=== PATIENT | female | born 1970 | race Caucasian/White ===

== ENCOUNTER 2017-01-26 16:15 | Outpatient (RCR) | payer OTHER ==
[~2017-01-26 16:15] MED LIST: ACIPHEX20 MG PO; ADIPEX-P37.5 M1 PO; ASPIRIN 81M81 MG/TA2 PO; CELEXA 20MG20 MG/TAB PO; CELEXA10 MG PO; DUO-KAPS1 CAP PO; FISH OIL SUPER1 SGL PO; FLEXERIL 1010 MG/TAB PO; GLUCOSAMINE & C1 CA1 PO; IMITREX100 MG PO; KLONOPIN 0.5MG0.5 MG PO; LINZESS145CAP PO; MIRAPEX 0.0.125 MG/T PO; MOTRIN 800800 MG/TAB PO; MVI; NEURONTIN300 MG/CAP PO; NORCO 325 MG-101 TAB PO; NORCO 325 MG-51 TAB PO; NORCO 325 MG-7.1 TAB PO; PERCOCET 5/321 UDTAB PO; PHENERGAN 25 TA25 MG PO; PHENERGAN25 MG RC; PREVACID 30MG30 M1 PO; PROBIOTICA100 MILLIO; PROTONIX 40MG T40 MG PO; ROBAXIN 50500 MG/TAB; ROBAXIN 50500 MG/TAB PO; SENOKOT8.6 MG PO; SKELAXIN 4400 MG/TAB PO; ULTRAM 50MG TAB50 MG PO; VALIUM5 MG PO; VITAMIN B121000 MC2 SL; VITAMIN B122500 MCG SL; VITAMIN D31000 I1 PO; XANAX .25M0.25 MG/TA PO; [UNRECOGNIZED DRUG - REMARK]
== END 2017-01-29 08:40 | disposition home or self-care (01) ==
LOC: MKS.ESL.PT 16:15
DX: Z47.89 Encounter for other orthopedic aftercare (principal); Z98.1 Arthrodesis status

== ENCOUNTER → 2017-06-06 | Outpatient (CLI) | payer OTHER ==
[~2017-06-06] MED LIST changes: +NEXIUM 20MG20 MG PO; +TORADOL 10MG TA10 MG PO; +ZANAFLEX2 MG PO
== END ==
LOC: COL.RAD 07:21
DX: I70.0 Atherosclerosis of aorta (principal); F17.200 Nicotine dependence, unspecified, uncomplicated

== ENCOUNTER 2017-06-10 10:12 | Emergency (ER) | payer OTHER ==
[~2017-06-10] VITALS: Ht 167.6 cm; Wt 96.4 kg
[~2017-06-10 10:12] MED LIST changes: -NEXIUM 20MG20 MG PO; -TORADOL 10MG TA10 MG PO; -ZANAFLEX2 MG PO
[2017-06-10 10:14] VITALS: BP 138/86; TEMP 98.5
[2017-06-10 10:45] LABS: BASO # 0.1 (0.0-0.2); BASO % 0.6 % (0.0-2.0); EOS # 0.3 (0.0-0.7); EOS % 2.2 % (0-4.0); GRAN # 7.7 (1.4-6.5); GRAN % 61.4 % (42.2-75.2); HEMATOCRIT 43.4 % (37.0-47.0); HEMOGLOBIN 14.4 g/dl (12.5-16.0); LYMPH # 3.5 (1.2-3.4); MEAN CELL VOLUME 96 fl (80.0-100.0); MEAN CORPUSCULAR HEMOGLOBIN 32 pg (27.0-31.0); MEAN CORPUSCULAR HGB CONC 33 g/dl (33.0-37.0); MEAN PLATELET VOLUME 9.4 fl (7.4-10.4); MONO # 0.9 (0.1-0.6); MONO % 7.5 % (1.7-9.3); PLATELET COUNT 507 K/mm3 (130-400); RED BLOOD COUNT 4.54 M/mm3 (4.10-5.30); REDCELL DISTRIBUTION WIDTH-CV 13.8 % (11.5-14.5); WHITE BLOOD COUNT 12.6 K/mm3 (4.8-10.8)
[2017-06-10 10:47] LABS: PH 6 (5-8); SQUAMOUS EPITHELIAL 0-2 /hpf; URINE APPEARANCE Clear; URINE BACTERIA None Seen /hpf; URINE BILIRUBIN Negative (NEGATIVE); URINE BLOOD 1+ (NEGATIVE); URINE COLOR Yellow; URINE GLUCOSE Negative (NEGATIVE); URINE KETONE Negative (NEGATIVE); URINE UROBILINOGEN Negative (NEGATIVE); URINE WBC 0-2 /hpf
[2017-06-10] MEDS ORDERED: NEXIUM 20MG20 MG PO (10:48)
[2017-06-10] MEDS ORDERED: TORADOL 10MG TA10 MG PO (10:50)
[2017-06-10] MEDS ORDERED: ZANAFLEX2 MG PO (10:50)
[2017-06-10 11:00] LABS: ADJUSTED CALCIUM 9.3 mg/dL (8.4-10.2); ALBUMIN 4.7 gm/dL (3.5-5.0); BILIRUBIN,TOTAL 0.5 mg/dL (0.0-1.0); C-REACTIVE PROTEIN 0.6 mg/dL (0.0-0.9); CALCIUM 9.9 mg/dL (8.4-10.2); CREATININE, serum 0.64 mg/dL (0.52-1.25); POTASSIUM 4.5 mmol/L (3.4-5.0)
[2017-06-10] MEDS ORDERED: NORCO 325 MG-51 TAB PO (12:36)
[2017-06-10 12:59] VITALS: PULSE 79
== END 2017-06-10 13:00 | disposition home or self-care (01) ==
LOC: COL.ER 10:12
PROVIDERS: Family Medicine
DX: N20.0 Calculus of kidney (principal)
CPT/HCPCS: J2270; J2405; J7030; Q9967

== ENCOUNTER → 2017-06-12 | Outpatient (CLI) | payer OTHER ==
[~2017-06-12] MED LIST changes: +NEXIUM 20MG20 MG PO; +TORADOL 10MG TA10 MG PO; +ZANAFLEX2 MG PO
== END ==
LOC: COL.RAD 08:09
DX: M47.816 Spondylosis without myelopathy or radiculopathy, lumbar region (principal); M54.5 Low back pain; Z98.890 Other specified postprocedural states
CPT/HCPCS: A9585

== ENCOUNTER 2017-07-22 14:11 | Emergency (ER) | payer OTHER ==
[~2017-07-22] VITALS: Ht 167.6 cm; Wt 95.5 kg
[2017-07-22 14:20] VITALS: TEMP 97.5
[2017-07-22 15:58] VITALS: BP 122/72; PULSE 82
== END 2017-07-22 16:03 | disposition home or self-care (01) ==
LOC: COL.ER 14:11
DX: G43.909 Migraine, unspecified, not intractable, without status migrainosus (principal); F17.210 Nicotine dependence, cigarettes, uncomplicated; Z87.442 Personal history of urinary calculi; Z90.710 Acquired absence of both cervix and uterus
CPT/HCPCS: J1200; J1885; J2765; J7030

== ENCOUNTER 2017-10-25 02:22 | Observation (INO) | payer OTHER ==
[~2017-10-25] VITALS: Ht 167.6 cm; Wt 98.7 kg
[2017-10-25 03:13] LABS: BASO # 0.1 (0.0-0.2); BASO % 0.5 % (0.0-2.0); EOS # 0.3 (0.0-0.7); EOS % 2.3 % (0-4.0); GRAN # 7.3 (1.4-6.5); GRAN % 55.5 % (42.2-75.2); HEMATOCRIT 37.2 % (37.0-47.0); HEMOGLOBIN 12.5 g/dl (12.5-16.0); LYMPH # 4.4 (1.2-3.4); LYMPH % 33.6 % (20.0-51.0); MEAN CELL VOLUME 98 fl (80.0-100.0); MEAN CORPUSCULAR HEMOGLOBIN 33 pg (27.0-31.0); MEAN CORPUSCULAR HGB CONC 34 g/dl (33.0-37.0); MEAN PLATELET VOLUME 9.4 fl (7.4-10.4); MONO % 7.6 % (1.7-9.3); PLATELET COUNT 436 K/mm3 (130-400); RED BLOOD COUNT 3.78 M/mm3 (4.10-5.30)
[2017-10-25 03:24] LABS: ALBUMIN 4.3 gm/dL (3.5-5.0); BILIRUBIN,TOTAL 0.4 mg/dL (0.0-1.0); CALCIUM 9.6 mg/dL (8.4-10.2); CREATININE, serum 0.74 mg/dL (0.52-1.25); POTASSIUM 4.5 mmol/L (3.4-5.0)
[2017-10-25 03:34] LABS: COLLECTION METHOD CLEAN CATCH
[2017-10-25] MEDS ORDERED: MIRAPEX0.25 MG PO (03:35)
[2017-10-25] MEDS ORDERED: ROBAXIN 75750 MG/TAB PO ×2 (03:37)
[2017-10-25] MEDS ORDERED: ROBAXIN 50500 MG/TAB PO (03:37)
[2017-10-25] MEDS ORDERED: PHARMASSURE MA500 MG PO (03:38)
[2017-10-25] MEDS ORDERED: WELLBUTRIN 75MG75 MG PO (03:38)
[2017-10-25] MEDS ORDERED: NORCO 325 MG-7.1 TAB PO (03:39)
[2017-10-25 03:41] LABS: MUCOUS Present /lpf; PH 5 (5-8); SQUAMOUS EPITHELIAL 0-2 /hpf; URINE APPEARANCE Clear; URINE BACTERIA None Seen /hpf; URINE BILIRUBIN Negative (NEGATIVE); URINE BLOOD 2+ (NEGATIVE); URINE COLOR Yellow; URINE GLUCOSE Negative (NEGATIVE); URINE KETONE Negative (NEGATIVE); URINE LEUKOCYTE ESTERASE Negative (NEGATIVE); URINE NITRATE Negative (NEGATIVE); URINE PROTEIN(semi-quant) Negative (NEGATIVE); URINE RBC >50 /hpf; URINE UROBILINOGEN Negative (NEGATIVE)
[2017-10-25] MEDS ORDERED: ASPIRIN 81M81 MG/TA2 PO (05:35)
[2017-10-25 05:57] VITALS: BP 90/52; PULSE 67; TEMP 98.4
[2017-10-25 06:10] VITALS: BP 96/56
[2017-10-25 10:02] VITALS: BP 114/67; PULSE 69; TEMP 97.8
[2017-10-25 14:03] VITALS: BP 149/91; PULSE 98; TEMP 98
[2017-10-25 14:54] VITALS: BP 101/52; PULSE 74; TEMP 97.6
== END 2017-10-25 16:00 | disposition home or self-care (01) ==
LOC: COL.ER 02:22 → JCC 04:29
PROVIDERS: Emergency Medicine
DX: N20.1 Calculus of ureter (principal); F41.9 Anxiety disorder, unspecified; F32.9 Major depressive disorder, single episode, unspecified; K31.84 Gastroparesis; K21.9 Gastro-esophageal reflux disease without esophagitis; K58.9 Irritable bowel syndrome, unspecified; E66.9 Obesity, unspecified; G43.909 Migraine, unspecified, not intractable, without status migrainosus; F17.210 Nicotine dependence, cigarettes, uncomplicated; Z88.2 Allergy status to sulfonamides; Z82.49 Family history of ischemic heart disease and other diseases of the circulatory system; Z79.82 Long term (current) use of aspirin; M19.90 Unspecified osteoarthritis, unspecified site; R00.2 Palpitations; D47.3 Essential (hemorrhagic) thrombocythemia; G89.29 Other chronic pain; M54.9 Dorsalgia, unspecified; Z90.49 Acquired absence of other specified parts of digestive tract; Z90.710 Acquired absence of both cervix and uterus; G25.81 Restless legs syndrome
CPT/HCPCS: C1769; C2617; G0378; J0690; J1100; J1170; J1885; J2270; J2405; J2704; J3010; J7030; J7120; Q9967

== ENCOUNTER 2017-10-30 10:32 | Emergency (ER) | payer OTHER ==
[~2017-10-30] VITALS: Ht 167.6 cm; Wt 99.1 kg
[~2017-10-30 10:32] MED LIST changes: +MIRAPEX0.25 MG PO; +PHARMASSURE MA500 MG PO; +ROBAXIN 75750 MG/TAB PO; +WELLBUTRIN 75MG75 MG PO
[2017-10-30 10:35] VITALS: TEMP 97.5
[2017-10-30 11:25] LABS: COLLECTION METHOD CLEAN CATCH
[2017-10-30 11:29] LABS: BASO # 0.1 (0.0-0.2); BASO % 0.8 % (0.0-2.0); EOS # 0.3 (0.0-0.7); EOS % 2.2 % (0-4.0); GRAN # 7.8 (1.4-6.5); GRAN % 67.3 % (42.2-75.2); HEMATOCRIT 38.7 % (37.0-47.0); HEMOGLOBIN 12.8 g/dl (12.5-16.0); LYMPH # 2.6 (1.2-3.4); LYMPH % 22.8 % (20.0-51.0); MEAN CELL VOLUME 99 fl (80.0-100.0); MEAN CORPUSCULAR HEMOGLOBIN 33 pg (27.0-31.0); MEAN CORPUSCULAR HGB CONC 33 g/dl (33.0-37.0); MEAN PLATELET VOLUME 9.5 fl (7.4-10.4); MONO # 0.7 (0.1-0.6); MONO % 6.4 % (1.7-9.3); PLATELET COUNT 479 K/mm3 (130-400); REDCELL DISTRIBUTION WIDTH-CV 14.1 % (11.5-14.5)
[2017-10-30 11:38] LABS: MUCOUS Present /lpf; PH 6 (5-8); URINE APPEARANCE Cloudy; URINE BACTERIA None Seen /hpf; URINE BILIRUBIN Positive (NEGATIVE); URINE BLOOD 3+ (NEGATIVE); URINE COLOR Amber; URINE GLUCOSE Negative (NEGATIVE); URINE KETONE Negative (NEGATIVE); URINE LEUKOCYTE ESTERASE 1+ (NEGATIVE); URINE NITRATE Positive (NEGATIVE); URINE PROTEIN(semi-quant) 2+ (NEGATIVE); URINE RBC >50 /hpf; URINE UROBILINOGEN >=4.0 mg/dL (NEGATIVE)
[2017-10-30 11:46] LABS: ALBUMIN 4.3 gm/dL (3.5-5.0); BILIRUBIN,TOTAL 0.4 mg/dL (0.0-1.0); C-REACTIVE PROTEIN 0.8 mg/dL (0.0-0.9); CALCIUM 9.3 mg/dL (8.4-10.2); CREATININE, serum 0.68 mg/dL (0.52-1.25); POTASSIUM 4.4 mmol/L (3.4-5.0); TOTAL PROTEIN 7.1 gm/dL (6.4-8.2)
[2017-10-30 12:33] VITALS: BP 107/64; PULSE 78
[2017-10-30] MEDS ORDERED: NORCO 325 MG-7.1 TAB PO (12:43)
[2017-10-30] MEDS ORDERED: CEFTIN500 MG PO (12:43)
== END 2017-10-30 12:50 | disposition home or self-care (01) ==
LOC: COL.ER 10:32
PROVIDERS: Physician Assistant
DX: N39.0 Urinary tract infection, site not specified (principal); N20.0 Calculus of kidney; F32.9 Major depressive disorder, single episode, unspecified; K58.9 Irritable bowel syndrome, unspecified; Z90.89 Acquired absence of other organs; Z90.49 Acquired absence of other specified parts of digestive tract; Z90.710 Acquired absence of both cervix and uterus; Z98.51 Tubal ligation status; Z79.82 Long term (current) use of aspirin
CPT/HCPCS: J0696; J1170; J1885; J2405; J7030

== ENCOUNTER → 2018-07-08 | Outpatient (CLI) | payer OTHER ==
[~2018-07-08] MED LIST changes: +CEFTIN500 MG PO
== END ==
LOC: COL.RAD 10:37
DX: M25.532 Pain in left wrist (principal); Z87.828 Personal history of other (healed) physical injury and trauma

== ENCOUNTER 2018-12-27 09:02 | Emergency (ER) | payer OTHER ==
[~2018-12-27] VITALS: Ht 167.6 cm; Wt 86.4 kg
[2018-12-27 09:07] VITALS: BP 118/67; TEMP 98.9
[2018-12-27] MEDS ORDERED: PRILOSEC 20MG20 MG PO (09:38)
[2018-12-27] MEDS ORDERED: IRON TABLETS325 MG PO (09:40)
[2018-12-27] MEDS ORDERED: VITAMIN C500 MG PO (09:40)
[2018-12-27 09:54] LABS: BASO # 0.1 (0.0-0.2); BASO % 0.7 % (0.0-2.0); EOS # 0.2 (0.0-0.7); EOS % 1.6 % (0-4.0); GRAN # 6.8 (1.4-6.5); GRAN % 66.8 % (42.2-75.2); HEMATOCRIT 42.6 % (37.0-47.0); HEMOGLOBIN 14.4 g/dl (12.5-16.0); LYMPH # 2.5 (1.2-3.4); LYMPH % 24.4 % (20.0-51.0); MEAN CELL VOLUME 96 fl (80.0-100.0); MEAN CORPUSCULAR HEMOGLOBIN 33 pg (27.0-31.0); MEAN CORPUSCULAR HGB CONC 34 g/dl (33.0-37.0); MONO # 0.6 (0.1-0.6); MONO % 6.1 % (1.7-9.3); PLATELET COUNT 428 K/mm3 (130-400); RED BLOOD COUNT 4.42 M/mm3 (4.10-5.30); REDCELL DISTRIBUTION WIDTH-CV 13.8 % (11.5-14.5)
[2018-12-27 10:05] LABS: ALANINE AMINOTRANSFERASE 20 U/L (9-52); ALBUMIN 4.4 gm/dL (3.5-5.0); ALKALINE PHOSPHATASE 82 U/L (50-136); ANION GAP 8 mmol/L (7-16); AST,SGOT 23 U/L (15-37); BILIRUBIN,TOTAL 0.4 mg/dL (0.0-1.0); BLOOD UREA NITROGEN 18 mg/dL (7-17); CALCIUM 9.2 mg/dL (8.4-10.2); CARBON DIOXIDE 25 mmol/L (22-30); CHLORIDE 106 mmol/L (98-107); CREATININE, serum 0.58 mg/dL (0.52-1.25); GLUCOSE 101 mg/dL (74-106); POTASSIUM 4.3 mmol/L (3.4-5.0); SODIUM 139 mmol/L (137-145); TOTAL PROTEIN 7.3 gm/dL (6.4-8.2)
[2018-12-27 10:07] LABS: C-REACTIVE PROTEIN < 0.5 mg/dL (0.0-0.9)
[2018-12-27] MEDS ORDERED: BONINE25 MG PO (10:25)
[2018-12-27 10:32] VITALS: PULSE 81
== END 2018-12-27 10:33 | disposition home or self-care (01) ==
LOC: COL.ER 09:02
PROVIDERS: Family Medicine
DX: H83.01 Labyrinthitis, right ear (principal); K21.9 Gastro-esophageal reflux disease without esophagitis; G43.909 Migraine, unspecified, not intractable, without status migrainosus; F17.210 Nicotine dependence, cigarettes, uncomplicated; Z90.49 Acquired absence of other specified parts of digestive tract; Z90.710 Acquired absence of both cervix and uterus; Z86.73 Personal history of transient ischemic attack (TIA), and cerebral infarction without residual deficits

== ENCOUNTER → 2019-09-24 | Outpatient (CLI) | payer OTHER ==
[~2019-09-24] MED LIST changes: +BONINE25 MG PO; +IRON TABLETS325 MG PO; +PRILOSEC 20MG20 MG PO; +VITAMIN C500 MG PO
== END ==
LOC: COL.RAD 12:16
DX: M41.86 Other forms of scoliosis, lumbar region (principal); M47.26 Other spondylosis with radiculopathy, lumbar region; Z98.1 Arthrodesis status

== ENCOUNTER → 2019-10-16 | Outpatient (CLI) | payer OTHER | LOC: MC.RAD 15:24 | DX: Z12.31 Encounter for screening mammogram for malignant neoplasm of breast (principal) ==

== ENCOUNTER → 2019-11-11 | Outpatient (CLI) | payer OTHER | LOC: MHCPAIN 14:22 | DX: M47.817 Spondylosis without myelopathy or radiculopathy, lumbosacral region (principal); M54.16 Radiculopathy, lumbar region | CPT/HCPCS: G0463 ==

== ENCOUNTER 2019-12-10 09:59 | Outpatient (RCR) | payer OTHER | END 2020-02-11 13:36 | disposition home or self-care (01) | LOC: WSPT 09:59 | DX: M47.27 Other spondylosis with radiculopathy, lumbosacral region (principal); M53.3 Sacrococcygeal disorders, not elsewhere classified; M96.1 Postlaminectomy syndrome, not elsewhere classified ==

== ENCOUNTER → 2019-12-11 | Outpatient (CLI) | payer OTHER | LOC: COL.RAD 09:12 | DX: M47.816 Spondylosis without myelopathy or radiculopathy, lumbar region (principal); M51.36 Other intervertebral disc degeneration, lumbar region; M43.16 Spondylolisthesis, lumbar region ==

== ENCOUNTER → 2019-12-11 | Outpatient (CLI) | payer OTHER | LOC: MHCPAIN 10:26 | DX: M41.26 Other idiopathic scoliosis, lumbar region (principal); M43.16 Spondylolisthesis, lumbar region; M54.5 Low back pain | CPT/HCPCS: J1100; Q9967 ==

== ENCOUNTER → 2020-01-23 | Outpatient (CLI) | payer OTHER | LOC: COL.RAD 09:20 | DX: M43.12 Spondylolisthesis, cervical region (principal); M43.13 Spondylolisthesis, cervicothoracic region; M47.812 Spondylosis without myelopathy or radiculopathy, cervical region; R20.0 Anesthesia of skin ==

== ENCOUNTER 2021-08-31 16:25 | Emergency (ER) | payer OTHER ==
[~2021-08-31] VITALS: Ht 167.6 cm; Wt 91.8 kg
[~2021-08-31 16:25] MED LIST changes: +CEPHALEXIN500 M1 PO
[2021-08-31 17:34] VITALS: TEMP 98
[2021-08-31] MEDS ORDERED: NORCO 325 MG-101 TAB PO (18:34)
[2021-08-31 18:46] VITALS: BP 114/80; PULSE 76
== END 2021-08-31 18:46 | disposition home or self-care (01) ==
LOC: COL.ER 16:25
DX: M54.50 Low back pain, unspecified (principal); G89.29 Other chronic pain; M19.90 Unspecified osteoarthritis, unspecified site; Z87.39 Personal history of other diseases of the musculoskeletal system and connective tissue; Z79.1 Long term (current) use of non-steroidal anti-inflammatories (NSAID)

== ENCOUNTER → 2021-10-17 | Outpatient (CLI) | payer OTHER | LOC: MC.RAD 08:45 | DX: Z12.31 Encounter for screening mammogram for malignant neoplasm of breast (principal) ==

== ENCOUNTER 2022-01-02 15:15 | Emergency (ER) | payer OTHER ==
[~2022-01-02] VITALS: Ht 167.6 cm; Wt 92.7 kg
[2022-01-02 15:25] VITALS: BP 120/83; TEMP 98.7
[2022-01-02] MEDS ORDERED: NEURONTIN300 MG/CAP PO (15:32)
[2022-01-02] MEDS ORDERED: NORCO 325 MG-101 TAB PO (16:04)
[2022-01-02 16:18] VITALS: PULSE 80
== END 2022-01-02 16:18 | disposition home or self-care (01) ==
LOC: COL.ER 15:15
DX: M54.9 Dorsalgia, unspecified (principal); G89.29 Other chronic pain; F17.210 Nicotine dependence, cigarettes, uncomplicated; Z76.0 Encounter for issue of repeat prescription; Z98.890 Other specified postprocedural states

== ENCOUNTER → 2022-04-03 | Outpatient (CLI) | payer OTHER | LOC: MHCPAIN 14:04 | DX: M47.817 Spondylosis without myelopathy or radiculopathy, lumbosacral region (principal); M54.16 Radiculopathy, lumbar region; M53.3 Sacrococcygeal disorders, not elsewhere classified; M96.1 Postlaminectomy syndrome, not elsewhere classified | CPT/HCPCS: G0463 ==

== ENCOUNTER → 2022-04-06 | Outpatient (CLI) | payer OTHER | LOC: MHCPAIN 11:41 | DX: M47.816 Spondylosis without myelopathy or radiculopathy, lumbar region (principal); M96.1 Postlaminectomy syndrome, not elsewhere classified; M53.3 Sacrococcygeal disorders, not elsewhere classified; M54.16 Radiculopathy, lumbar region | CPT/HCPCS: J1100; Q9967 ==

== ENCOUNTER → 2022-05-03 | Outpatient (CLI) | payer OTHER | LOC: MHCPAIN 13:01 | DX: M54.50 Low back pain, unspecified (principal); M54.16 Radiculopathy, lumbar region; M43.16 Spondylolisthesis, lumbar region; M96.1 Postlaminectomy syndrome, not elsewhere classified | CPT/HCPCS: G0463 ==

== ENCOUNTER → 2022-08-02 | Outpatient (CLI) | payer OTHER | LOC: MHCPAIN 12:57 | DX: M47.897 Other spondylosis, lumbosacral region (principal); M54.16 Radiculopathy, lumbar region; M53.3 Sacrococcygeal disorders, not elsewhere classified; M96.1 Postlaminectomy syndrome, not elsewhere classified | CPT/HCPCS: G0463 ==

== ENCOUNTER → 2022-08-03 | Outpatient (CLI) | payer OTHER | LOC: COL.RAD 08:50 | DX: M41.86 Other forms of scoliosis, lumbar region (principal); M89.8X9 Other specified disorders of bone, unspecified site; M79.606 Pain in leg, unspecified | CPT/HCPCS: A9503 ==

== ENCOUNTER → 2023-02-14 | Outpatient (CLI) | payer OTHER | LOC: MHCPAIN 12:49 | DX: M54.16 Radiculopathy, lumbar region (principal); M96.1 Postlaminectomy syndrome, not elsewhere classified; G89.29 Other chronic pain; F17.210 Nicotine dependence, cigarettes, uncomplicated | CPT/HCPCS: G0463 ==

== ENCOUNTER → 2023-06-19 | Outpatient (CLI) | payer OTHER | LOC: MHCPAIN 14:30 | DX: M43.16 Spondylolisthesis, lumbar region (principal); M48.061 Spinal stenosis, lumbar region without neurogenic claudication; M41.26 Other idiopathic scoliosis, lumbar region; M96.1 Postlaminectomy syndrome, not elsewhere classified; F17.210 Nicotine dependence, cigarettes, uncomplicated | CPT/HCPCS: G0463 ==

== ENCOUNTER → 2023-11-14 | Outpatient (CLI) | payer OTHER | LOC: MHCPAIN 13:12 | DX: M54.16 Radiculopathy, lumbar region (principal); M96.1 Postlaminectomy syndrome, not elsewhere classified; M79.2 Neuralgia and neuritis, unspecified; F17.210 Nicotine dependence, cigarettes, uncomplicated | CPT/HCPCS: G0463 ==

== ENCOUNTER → 2023-12-17 | Outpatient (CLI) | payer OTHER ==
[~2023-12-17] MED LIST changes: +Iohexol 300 - 10 ML VIAL ONE; +Lidocaine PF 2% (20 MG/ML) 2 ML VIAL ONE
== END ==
LOC: MHCPAIN 11:29
DX: M47.816 Spondylosis without myelopathy or radiculopathy, lumbar region (principal); M54.16 Radiculopathy, lumbar region
CPT/HCPCS: J1100; Q9967

== ENCOUNTER → 2024-01-01 | Outpatient (CLI) | payer OTHER ==
[~2024-01-01] MED LIST changes: -Iohexol 300 - 10 ML VIAL ONE; -Lidocaine PF 2% (20 MG/ML) 2 ML VIAL ONE
== END ==
LOC: MC.RAD 15:37
DX: Z12.31 Encounter for screening mammogram for malignant neoplasm of breast (principal)

== ENCOUNTER → 2024-04-21 | Outpatient (CLI) | payer OTHER ==
[~2024-04-21] MED LIST changes: +Atropine 1 MG/10 ML SYRINGE IV ONE; +Glycopyrrolate 0.2 MG/ML 1 ML VIAL ONE; +Iohexol 300 - 10 ML VIAL ONE; +Lidocaine PF 2% (20 MG/ML) 2 ML VIAL ONE; +ePHEDrine 50 MG/10 ML VIAL IV ONE
== END ==
LOC: MHCPAIN 12:43
DX: M47.816 Spondylosis without myelopathy or radiculopathy, lumbar region (principal); M96.1 Postlaminectomy syndrome, not elsewhere classified; M54.16 Radiculopathy, lumbar region
CPT/HCPCS: J0461; J1100; Q9967

== ENCOUNTER → 2024-05-06 | Outpatient (CLI) | payer OTHER ==
[~2024-05-06] MED LIST changes: -Atropine 1 MG/10 ML SYRINGE IV ONE; -Glycopyrrolate 0.2 MG/ML 1 ML VIAL ONE; -Iohexol 300 - 10 ML VIAL ONE; -Lidocaine PF 2% (20 MG/ML) 2 ML VIAL ONE; -ePHEDrine 50 MG/10 ML VIAL IV ONE
== END ==
LOC: MHCPAIN 14:05
DX: M43.16 Spondylolisthesis, lumbar region (principal); M47.816 Spondylosis without myelopathy or radiculopathy, lumbar region; M48.061 Spinal stenosis, lumbar region without neurogenic claudication; M41.86 Other forms of scoliosis, lumbar region
CPT/HCPCS: G0463

== ENCOUNTER → 2024-07-23 | Outpatient (CLI) | payer OTHER ==
[~2024-07-23] MED LIST changes: +ASPERCREME ARTH50 GM TP; +CELEXA40 MG PO; +IBU800 M1 PO; +IMITREX ST6 MG/0.51; +LAMISIL1% TOP; +LYRICA 50MG CAP50 MG PO; +PRIL40 PO; +PROAIR HFA0.09 MG/AC IH; +ZANAFLEX CAPSULE4 MG PO
== END ==
LOC: MHCPAIN 14:02
DX: M48.061 Spinal stenosis, lumbar region without neurogenic claudication (principal); M47.816 Spondylosis without myelopathy or radiculopathy, lumbar region; M43.16 Spondylolisthesis, lumbar region; M96.1 Postlaminectomy syndrome, not elsewhere classified
CPT/HCPCS: G0463